=== PATIENT | female | born 1985 | race Caucasian/White ===

== ENCOUNTER 2016-06-22 16:50 | Emergency (ER) | payer MEDICAID ==
[~2016-06-22] VITALS: Ht 157.5 cm; Wt 69.4 kg
[~2016-06-22 16:50] MED LIST: IRON; [UNRECOGNIZED DRUG - REMARK]
[2016-06-22 17:03] VITALS: BP 109/58
--- NOTE | 2016-06-22 23:41 | NUR ---
TO ER BED3
--- NOTE | 2016-06-23 00:11 | NUR ---
Patient being evaluated by physician at bedside.
[2016-06-23] MEDS ORDERED: ALBUTEROL SULFATE/IPRATROPIU 3 ML SOL IH ONE (00:15)
[2016-06-23] MEDS ORDERED: traMADol 50 MG TAB PO ONE (00:15)
[2016-06-23] MEDS ORDERED: IBUPROFEN 800 MG TAB PO ONE (00:20)
[2016-06-23 00:40] VITALS: BP 121/70
--- NOTE | 2016-06-23 00:40 | NUR ---
Patient discharged with v/s stable. Written and verbal after care instructions given and explained. Patient alert, oriented and verbalized understanding of instructions. Ambulatory with steady gait. All questions addressed prior to discharge. ID band removed. Patient advised to follow up with PMD. Rx of AZITHROMYCIN, TRAMADOL, DEXTROMETHORPHAN given. Patient educated on indication of medication including possible reaction and side effects. Opportunity to ask questions provided and answered.
== END 2016-06-23 00:40 | disposition home or self-care (01) ==
LOC: MED 16:50
DX: J20.9 Acute bronchitis, unspecified (principal); J45.909 Unspecified asthma, uncomplicated
CPT/HCPCS: 82948; 94640; 94760; 99283; J7620

== ENCOUNTER 2019-08-29 15:31 | Emergency (ER) | payer MEDICAID, SELFPAY ==
[~2019-08-29] VITALS: Ht 157.5 cm; Wt 74.8 kg
[2019-08-29 16:12] VITALS: BP 141/116
--- NOTE | 2019-08-29 16:42 | NUR ---
hx dm and RA c/o aunt lives with her tested positive for COVIG 19 last week---symptoms of diarrhea, heache, scratchy throat----- also reports left great toe with ingrown nail.
--- NOTE | 2019-08-29 17:09 | NUR ---
PT AMB TO ER BED 1
--- NOTE | 2019-08-29 17:44 | NUR ---
COVID SWAB COLLECTED
--- NOTE | 2019-08-29 17:57 | NUR ---
XRAY AT BEDSIDE
--- NOTE | 2019-08-29 18:35 | NUR ---
Patient discharged with v/s stable. Written and verbal after care instructions given and explained. Patient alert, oriented and verbalized understanding of instructions. Ambulatory with steady gait. All questions addressed prior to discharge. ID band removed. Patient advised to follow up with PMD. Rx of TYLENOL W CODEINE & BACTRIM given. Patient educated on indication of medication including possible reaction and side effects. Opportunity to ask questions provided and answered.
[2019-08-29 18:36] VITALS: BP 136/91
== END 2019-08-29 18:35 | disposition home or self-care (01) ==
LOC: MED 15:31 → EEVIPCON 15:31 → MED 18:35
DX: R05 Cough (principal); E11.9 Type 2 diabetes mellitus without complications; I10 Essential (primary) hypertension; J45.909 Unspecified asthma, uncomplicated; M19.90 Unspecified osteoarthritis, unspecified site; N28.9 Disorder of kidney and ureter, unspecified; Z79.899 Other long term (current) drug therapy; Z20.828 Contact with and (suspected) exposure to other viral communicable diseases; Z90.49 Acquired absence of other specified parts of digestive tract; Z87.410 Personal history of cervical dysplasia
CPT/HCPCS: 71045; 81002; 81025; 99284; Q0092; U0003